=== PATIENT | female | born 1955 | race Caucasian/White ===

== ENCOUNTER 2017-02-25 08:30 | Outpatient (CLI) | payer BC ==
[2017-02-25 12:49] LABS: BILIRUBIN,URINE NEGATIVE (NEGATIVE)
[2017-02-25 13:09] LABS: WBC,URINE 0-3 /HPF (0-5)
[2017-02-25 13:10] LABS: UR CULTURE IF IND NOT INDICATED
== END 2017-02-25 08:31 | disposition home or self-care (01) ==
LOC: LAB.WCP 08:30
PROVIDERS: ATTEND Physician Assistant Medical
DX: R31.9 Hematuria, unspecified (principal)
CPT/HCPCS: 81001; 87086

== ENCOUNTER 2018-03-02 14:20 | Outpatient (CLI) | payer BC ==
--- NOTE | 2018-03-02 17:07 | Ultrasound Report ---
Procedure Date: 03/02/2018 Accession Number: [id number] / [id number] Procedure: US - Head or Neck Soft Tissue CPT Code: FULL RESULT: EXAM: THYROID ULTRASOUND EXAM DATE: 03/02/2018 03:42 PM. CLINICAL HISTORY: HOT FLASHES,TACHYARRHYTHMIA. COMPARISON: None. TECHNIQUE: Real time sonographic imaging of the thyroid was performed by the care clinician. Multiple food products sales representative static images were saved for review. FINDINGS: THYROID GLAND: Right Lobe: 4.6 x 1.5 x 1.1 cm, volume 4 cc. Normal background echotexture. Right Lobe Nodules: 4 x 3 x 4 mm hypoechoic avascular inferior pole nodule. Left Lobe: 3.8 x 1.8 x 1.1 cm, volume 4 cc. Normal background echotexture. Left Lobe Nodules: 7 mm in diameter midpole isoechoic avascular nodule. Adjacent more inferior slightly exophytic minimally vascular isoechoic nodule 1.2 x 1.1 x 1.1 cm. Isthmus: 0.3 cm AP. Isthmic Nodules: None. LYMPH NODES: No adenopathy demonstrated in the central or lateral compartment. OTHER: None. IMPRESSION: 3 thyroid nodules as above. Suggest follow-up thyroid ultrasound in 6-12 months. Management recommendations are based on 2015 [place] [employer] Management Guidelines for Adult Patients with Thyroid Nodules and Differentiated Thyroid Cancer. RADIA
== END 2018-03-02 14:21 | disposition home or self-care (01) ==
LOC: DI 14:20
PROVIDERS: ATTEND Family Medicine
DX: N95.1 Menopausal and female climacteric states (principal); R00.0 Tachycardia, unspecified; E04.2 Nontoxic multinodular goiter
CPT/HCPCS: 76536

== ENCOUNTER 2019-03-26 08:00 | Outpatient (CLI) | payer BC | END 2019-03-26 23:59 | disposition home or self-care (01) | LOC: LAB.R 08:00 | PROVIDERS: ATTEND Family Medicine | DX: N39.0 Urinary tract infection, site not specified (principal) | CPT/HCPCS: 87086; 87181 ==

== ENCOUNTER 2019-06-09 14:39 | Outpatient (CLI) | payer BC ==
[2019-06-09 18:46] LABS: CALCIUM 9.5 mg/dL (8.5-10.3); CREATININE 0.9 mg/dL (0.4-1.0)
== END 2019-06-09 23:59 | disposition home or self-care (01) ==
LOC: LAB.WCP 14:39
PROVIDERS: ATTEND Family Medicine
DX: I49.9 Cardiac arrhythmia, unspecified (principal); E04.1 Nontoxic single thyroid nodule; I10 Essential (primary) hypertension
CPT/HCPCS: 36415; 80048; 84443; 84550

== ENCOUNTER 2019-09-16 13:45 | Outpatient (CLI) | payer BC ==
[2019-09-16 14:07] LABS: BASOPHILS % (AUTO) 0.2 %; EOSINOPHILS % (AUTO) 0.1 %; HGB - HEMOGLOBIN 13.5 g/dL (12.0-16.0); LYMPHOCYTES # (AUTO) 1.8 10^3/uL (1.5-3.5); LYMPHOCYTES % (AUTO) 13.7 %; MEAN CORPUSCULAR HEMOGLOBIN 30.1 pg (27.0-31.0); MEAN CORPUSCULAR HGB CONC 33.3 g/dL (32.0-36.0); MEAN CORPUSCULAR VOLUME 90.6 fL (81.0-99.0); MONOCYTES # (AUTO) 0.7 10^3/uL (0.0-1.0); MONOCYTES % (AUTO) 5.1 %; NEUTROPHILS # (AUTO) 10.4 10^3/uL (1.5-6.6); PLT - PLATELET COUNT 308 10^3/uL (130-450); RED BLOOD COUNT 4.48 10^6/uL (4.20-5.40); RED CELL DISTRIBUTION WIDTH 13.7 % (12.0-15.0); WHITE BLOOD COUNT 13.1 x10^3/uL (4.8-10.8)
[2019-09-16 14:35] LABS: ALBUMIN 4.6 g/dL (3.2-5.5); ALBUMIN/GLOBULIN RATIO 1.5 (1.0-2.2); BILIRUBIN,TOTAL 0.6 mg/dL (0.2-1.0); CALCIUM 9.4 mg/dL (8.5-10.3); CREATININE 0.9 mg/dL (0.4-1.0); TOTAL PROTEIN 7.7 g/dL (6.7-8.2)
== END 2019-09-16 13:46 | disposition home or self-care (01) ==
LOC: LAB 13:45
PROVIDERS: ATTEND Obstetrics & Gynecology
DX: Z01.812 Encounter for preprocedural laboratory examination (principal); N95.0 Postmenopausal bleeding
CPT/HCPCS: 36415; 80053; 85025

== ENCOUNTER 2019-09-22 14:35 | Day surgery (SDC) | payer BC ==
--- NOTE | 2019-09-22 05:04 | HISTORY & PHYSICAL EXAMINATION ---
HPI - History of Present Illness HPI Comment/Other: CC: PreOp Consult: hysteroscopy HPI: Pt is here today for a preop consult for a hysteroscopy ...................................................................LETI Booth September 21, 2019 2:27 PM Patient was last seen in clinic on 09/09/28 for postmenopausal bleeding and thickened endometrium Had new onset vaginal bleeding in late July. Pelvic us showed a 14 mm EMS as well as an endometrial mass She has since undergone a stress test and was cleared for surgery. Has been given misoprostol for preop preparation Last pap 08/02; wnl No change in health hx other than as noted in HPI Current Allergies: CIPRO (Moderate) Current Meds: ADVAIR DISKUS 250-50 MCG/DOSE INHALATION AEROSOL POWDER CHRISTINE (FLUTICASONE- SALMETEROL) Use one inhalation twice daily, rinse mouth after use; Route: INHALATION DILTIAZEM HCL ER 120 MG ORAL CAPSULE EXTENDED RELEASE 24 YELENA (DILTIAZEM HCL) Take two capsule by mouth once daily for high blood pressure; Route: ORAL HYDROCHLOROTHIAZIDE 12.5 MG ORAL TABLET (HYDROCHLOROTHIAZIDE) Take one tablet by mouth daily; Route: ORAL METHOCARBAMOL 500 MG TABS (METHOCARBAMOL) TAKE 1 AND 1/2 TABLETS (750 MG) BY MOUTH THREE TIMES DAILY NEEDED FOR BACK SPASMS CHOLESTYRAMINE 4 GM PACK (CHOLESTYRAMINE) TAKE ONE PACKET WITH 6 OUNCES OF WATER TWICE DAILY IBUPROFEN 800 MG TABS (IBUPROFEN) TAKE ONE TABLET BY MOUTH THREE TIMES DAILY WITH FOOD VENTOLIN HFA 108 MCG/ACT AER GLAX (ALBUTEROL SULFATE) INHALE TWO PUFFS BY MOUTH EVERY FOUR HOURS NEEDED FOR WHEEZING FLUTICASONE PROPIONATE NASAL SUSPENSION 50 MCG/ACT (FLUTICASONE PROPIONATE) USE ONE SPRAY IN EACH NOSTRIL TWICE DAILY TRIAMCINOLONE ACETONIDE 0.1 % EXTERNAL CREAM (TRIAMCINOLONE ACETONIDE) Apply sparingly to affected areas daily TRUETEST TEST IN VITRO STRIP (GLUCOSE BLOOD) use to check BS once daily MONOLET LANCETS (LANCETS) use to check BS once daily HYDROCORTISONE 2.5 % EXTERNAL CREAM (HYDROCORTISONE) Apply twice daily to affected ear canal as needed; Route: EXTERNAL Allergies: CIPRO (Moderate) Medications: ADVAIR DISKUS 250-50 MCG/DOSE INHALATION AEROSOL POWDER CHRISTINE (FLUTICASONE- SALMETEROL) Use one inhalation twice daily, rinse mouth after use; Route: INHALATION DILTIAZEM HCL ER 120 MG ORAL CAPSULE EXTENDED RELEASE 24 YELENA (DILTIAZEM HCL) Take two capsule by mouth once daily for high blood pressure; Route: ORAL HYDROCHLOROTHIAZIDE 12.5 MG ORAL TABLET (HYDROCHLOROTHIAZIDE) Take one tablet by mouth daily; Route: ORAL METHOCARBAMOL 500 MG TABS (METHOCARBAMOL) TAKE 1 AND 1/2 TABLETS (750 MG) BY MOUTH THREE TIMES DAILY NEEDED FOR BACK SPASMS CHOLESTYRAMINE 4 GM PACK (CHOLESTYRAMINE) TAKE ONE PACKET WITH 6 OUNCES OF WATER TWICE DAILY IBUPROFEN 800 MG TABS (IBUPROFEN) TAKE ONE TABLET BY MOUTH THREE TIMES DAILY WITH FOOD VENTOLIN HFA 108 MCG/ACT AER GLAX (ALBUTEROL SULFATE) INHALE TWO PUFFS BY MOUTH EVERY FOUR HOURS NEEDED FOR WHEEZING FLUTICASONE PROPIONATE NASAL SUSPENSION 50 MCG/ACT (FLUTICASONE PROPIONATE) USE ONE SPRAY IN EACH NOSTRIL TWICE DAILY TRIAMCINOLONE ACETONIDE 0.1 % EXTERNAL CREAM (TRIAMCINOLONE ACETONIDE) Apply sparingly to affected areas daily TRUETEST TEST IN VITRO STRIP (GLUCOSE BLOOD) use to check BS once daily MONOLET LANCETS (LANCETS) use to check BS once daily HYDROCORTISONE 2.5 % EXTERNAL CREAM (HYDROCORTISONE) Apply twice daily to affected ear canal as needed; Route: EXTERNAL Problems: Preop exam (ICD-V72.84) (WZM67-D97.818) Thickened endometrium (ICD-793.5) (ZKN08-V33.00) Menorrhagia, postmenopausal (ICD-627.1) (AZC22-E12.0) Thyroid nodule (ICD-240.9) (SSL47-V24.1) Tachyarrhythmia (ICD-427.89) (DQY43-R60.0) Asthma (ICD-493.90) (NHM36-I52.909) Back pain, thoracic region (ICD-724.1) (UCM31-P10.6) Back pain, lumbar (ICD-724.2) (BHD75-M77.5) Preventive health care (ICD-V70.0) (VSN09-Z09.00) Diverticular disease (ICD-562.10) (JWX88-J70.90) Internal hemorrhoids (ICD-455.0) (FXB21-O25.8) Intertrigo, candidal (ICD-695.89) (WUE38-O89.2) Obesity (ICD-278.00) (BQZ22-O09.9) SHOULDER IMPINGEMENT SYNDROME (ICD-726.2) (AFU92-H81.40) ARTHRITIS, ANKLE/FOOT (ICD-716.97) (GLA90-W86.079) IRRITABLE BOWEL SYNDROME (ICD-564.1) (CYZ66-R02.9) TRIGGER FINGER (ICD-727.03) (AXR19-Q60.30) HIATAL HERNIA (ICD-553.3) (TVU73-B54.9) HYPERTENSION, BENIGN ESSENTIAL (ICD-401.1) (JMF59-U48) DYSLIPIDEMIA (ICD-272.9) (PGI14-A20.9) DIABETES MELLITUS (ICD-250.00) (VYQ13-P94.9) Risk Factors: Smoked Tobacco Use: Never smoker Smokeless Tobacco Use: Never Passive Smoke Exposure: no HIV High Risk Behavior: no Caffeine Use: 1 drinks per day Exercise: no Seatbelt Use: 100 % Sun Exposure: occasionally Dietary Counseling: yes Alcohol Use: no Drug Use: no Vital Signs: Patient Profile: 64 Years Old Female Height: 62.75 inches Weight: 270 pounds BMI: 48.38 BP sittin / 80 Cuff size: regular Vitals Entered By: LETI Booth (September 21, 2019 2:27 PM) Meds Reviewed: Done Allergies Reviewed: Done Past Medical History: UTI (ICD-599.0) (FMO04-D47.0) Physical examination (ICD-V70.0) (XVF96-W36.00) Intertrigo, candidal (ICD-695.89) (UFP48-H59.2) Sinusitis, acute (ICD-461.9) (OIV17-H22.90) Obesity (ICD-278.00) (WOS98-F39.9) DIARRHEA (ICD-787.91) (ANA53-M20.7) SHOULDER IMPINGEMENT SYNDROME (ICD-726.2) (HFF95-N31.40) ARTHRITIS, ANKLE/FOOT (ICD-716.97) (FGE76-Y34.079) ABDOMINAL PAIN (ICD-789.00) (FVW47-W50.9) IRRITABLE BOWEL SYNDROME (ICD-564.1) (FAU77-F61.9) TRIGGER FINGER (ICD-727.03) (RUX93-I62.30) HIATAL HERNIA (ICD-553.3) (IGI11-T40.9) LACTOSE INTOLERANCE (ICD-271.3) (DBS51-Y16.9) MENOPAUSAL SYNDROME (ICD-627.2) (YLV09-I70.1) HYPERTENSION, BENIGN ESSENTIAL (ICD-401.1) (TEH14-V28) DYSLIPIDEMIA (ICD-272.9) (GXX21-M49.9) DIABETES MELLITUS (ICD-250.00) (PHJ15-E97.9) Past Surgical History: Cholecystectomy - 2011 carpal tunnel b/l release R shoulder impingement Torn knee R meniscus left axilla - lipoma removal 1981 - ectopic - left fallopian tube 1983 - right cataract 209- Trigger finger 1979 - D&C 2008 - Tear duct re-routed 2012 - R knee - arthroscopic surgery - Dr. Elkins (Mar 2013) DEBURRER Review of Systems ROS Comments: As per HPI, otherwise remaining systems are negative. Physical Constitutional: alert, no acute distress, well hydrated. obese appearing. Skin: normal turgor, normal color. Head: atraumatic, normocephalic. Cardiovascular: RRR. Respiratory: no respiratory distress, clear to auscultation. Abdomen: nondistended, nontender, no guarding. Spine: normal mobility. Extremities: full joint motion. Neurologic: normal. Psych: affect and mood appropriate, normal interaction, good eye contact. Impression & Recommendations: Problem # 1: Preop exam (ICD-V72.84) (XWD63-E84.818) Orders: PRE OP -[id number] (CPT-20623) Cleared stress test Reviewed risks/benefits/alternatives to procedure Reviewed that risks include, but are not limited to, bleeding, infection, damage to nearby tissue and organs including uterine perforation Patient accepts risks and written informed consent was obtained for hysteroscopy, D&C with possible polypectomy/myomectomy Proceed to OR on 09/22/19 Patient Portal: [id number] Current Allergies: CIPRO (Moderate) Current Meds: ADVAIR DISKUS 250-50 MCG/DOSE INHALATION AEROSOL POWDER CHRISTINE (FLUTICASONE- SALMETEROL) Use one inhalation twice daily, rinse mouth after use; Route: INHALATION DILTIAZEM HCL ER 120 MG ORAL CAPSULE EXTENDED RELEASE 24 YELENA (DILTIAZEM HCL) Take two capsule by mouth once daily for high blood pressure; Route: ORAL HYDROCHLOROTHIAZIDE 12.5 MG ORAL TABLET (HYDROCHLOROTHIAZIDE) Take one tablet by mouth daily; Route: ORAL METHOCARBAMOL 500 MG TABS (METHOCARBAMOL) TAKE 1 AND 1/2 TABLETS (750 MG) BY MOUTH THREE TIMES DAILY NEEDED FOR BACK SPASMS CHOLESTYRAMINE 4 GM PACK (CHOLESTYRAMINE) TAKE ONE PACKET WITH 6 OUNCES OF WATER TWICE DAILY IBUPROFEN 800 MG TABS (IBUPROFEN) TAKE ONE TABLET BY MOUTH THREE TIMES DAILY WITH FOOD VENTOLIN HFA 108 MCG/ACT AER GLAX (ALBUTEROL SULFATE) INHALE TWO PUFFS BY MOUTH EVERY FOUR HOURS NEEDED FOR WHEEZING FLUTICASONE PROPIONATE NASAL SUSPENSION 50 MCG/ACT (FLUTICASONE PROPIONATE) USE ONE SPRAY IN EACH NOSTRIL TWICE DAILY TRIAMCINOLONE ACETONIDE 0.1 % EXTERNAL CREAM (TRIAMCINOLONE ACETONIDE) Apply sparingly to affected areas daily TRUETEST TEST IN VITRO STRIP (GLUCOSE BLOOD) use to check BS once daily MONOLET LANCETS (LANCETS) use to check BS once daily HYDROCORTISONE 2.5 % EXTERNAL CREAM (HYDROCORTISONE) Apply twice daily to affected ear canal as needed; Route: EXTERNAL PMH/PSH - Past Medical History Cardiovascular: positive: Hypertension, Other Respiratory: positive: Asthma Endocrine/Autoimmune: positive: Type 2 diabetes, Other GI: positive: GERD, Hiatal hernia, Other : positive: Chronic bladder infection HEENT: positive: Chronic vision loss Psych: positive: None Musculoskeletal: positive: Osteoarthritis, Chronic back pain Derm: positive: Rosacea MRSA Hx?: No - Past Surgical History General: positive: Cholecystectomy, Other Ortho: positive: Arthroscopic surgery, Carpal Tunnel surgery, Other /DEBURRER: positive: Dilation and currettage, Tubal ligation HEENT: positive: Cataracts, Other Meds/Allgy - Home Medications Home Medications: Ambulatory Orders Medication Instructions Recorded Confirmed Albuterol Sulfate [Albuterol 1 - 2 puffs IH Q4H PRN 09/16/19 09/16/19 Sulfate Hfa] Cholestyramine [Questran] 4 gm PO DAILY PRN 09/16/19 09/16/19 Diltiazem HCl [Dilt-Xr] 240 mg PO DAILY 09/16/19 09/16/19 Diltiazem HCl [Diltiazem 12Hr ER] 120 mg PO QPM 09/16/19 09/16/19 Fluticasone Propionate [24 Hour 1 spray NS BID 09/16/19 09/16/19 Allergy] Fluticasone [Flonase] 1 sprays SARA BID 09/16/19 09/16/19 Hydrochlorothiazide 12.5 mg PO DAILY 09/16/19 09/16/19 Ibuprofen 800 mg PO TID PRN 09/16/19 09/16/19 Losartan Potassium 50 mg PO QPM 09/16/19 09/16/19 Magnesium 250 mg PO DAILY 09/16/19 09/16/19 Pantoprazole Sodium 40 mg PO DAILY 09/16/19 09/16/19 Salmeterol Xinafoate [Serevent 1 puffs IH DAILY 09/16/19 09/16/19 Diskus] - Allergies Allergies/Adverse Reactions: Allergies Allergy/AdvReac Type Severity Reaction Status Date / Time ciprofloxacin [From Cipro] AdvReac Nausea Verified 09/16/19 14:52
[2019-09-22] MEDS ORDERED: GABAPENTIN 400 MG CAPSULE ONE (14:55)
[2019-09-22] MEDS ORDERED: CELECOXIB 100 MG CAPSULE PO ONE (14:55)
[2019-09-22] MEDS ORDERED: ACETAMINOPHEN 1,000 MG/100 ML 100 ML IV ONE ×2 (14:56→18:47)
[2019-09-22] MEDS ORDERED: LACTATED RINGERS 1,000 ML IV ONE (15:58)
--- NOTE | 2019-09-22 16:05 | ANESTHESIA ---
Pre-Anesthesia VS, & Labs - Diagnosis menorrhagia post menopausal - Procedure hysteroscopy Vital Signs: Temp Pulse Resp BP Pulse Ox 36.8 C 108 H 16 148/70 H 99 09/22/19 15:18 09/22/19 15:18 09/22/19 15:18 09/22/19 15:18 09/22/19 15:18 Height 5 ft 2 in Weight (kg) 121.3 kg - Is Patient ?: No - Lab Results Current Lab Results: Laboratory Tests 09/22/19 15:52: POC Whole Bld Glucose 112 H Home Medications and Allergies Home Medications: Ambulatory Orders Albuterol Sulfate [Albuterol Sulfate Hfa] 1 - 2 puffs IH Q4H PRN 09/16/19 Cholestyramine [Questran] 4 gm PO DAILY PRN 09/16/19 Diltiazem HCl [Dilt-Xr] 240 mg PO DAILY 09/16/19 Diltiazem HCl [Diltiazem 12Hr ER] 120 mg PO QPM 09/16/19 Fluticasone Propionate [24 Hour Allergy] 1 spray NS BID 09/16/19 Fluticasone [Flonase] 1 sprays SARA BID 09/16/19 Hydrochlorothiazide 12.5 mg PO DAILY 09/16/19 Ibuprofen 800 mg PO TID PRN 09/16/19 Losartan Potassium 50 mg PO QPM 09/16/19 Magnesium 2 mg PO DAILY 09/16/19 Pantoprazole Sodium 40 mg PO DAILY 09/16/19 Salmeterol Xinafoate [Serevent Diskus] 1 puffs IH DAILY 09/16/19 Albuterol Sulfate [Albuterol Sulfate Hfa] 1 - 2 puffs IH Q4H PRN 09/16/19 Cholestyramine [Questran] 4 gm PO DAILY PRN 09/16/19 Diltiazem HCl [Dilt-Xr] 240 mg PO DAILY 09/16/19 Diltiazem HCl [Diltiazem 12Hr ER] 120 mg PO QPM 09/16/19 Fluticasone Propionate [24 Hour Allergy] 1 spray NS BID 09/16/19 Fluticasone [Flonase] 1 sprays SARA BID 09/16/19 Hydrochlorothiazide 12.5 mg PO DAILY 09/16/19 Ibuprofen 800 mg PO TID PRN 09/16/19 Losartan Potassium 50 mg PO QPM 09/16/19 Magnesium 2 mg PO DAILY 09/16/19 Pantoprazole Sodium 40 mg PO DAILY 09/16/19 Salmeterol Xinafoate [Serevent Diskus] 1 puffs IH DAILY 09/16/19 Allergies/Adverse Reactions: Allergies Allergy/AdvReac Type Severity Reaction Status Date / Time ciprofloxacin [From Cipro] AdvReac Nausea Verified 09/16/19 14:52 Anes History & Medical History - Anesthetic History Anesthesia Complications: reports: No previous complications Family history of Anesthesia Complications: Denies - Medical History Cardiovascular: reports: Hypertension, Other Pulmonary: reports: Asthma, Sleep apnea Gastrointestinal: reports: GERD, Hiatal hernia, Other Urinary: reports: Chronic bladder infection Neuro: reports: None Musculoskeletal: reports: Osteoarthritis, Chronic back pain Endocrine/Autoimmune: reports: Type 2 diabetes, Other Blood Disorders: reports: None Skin: reports: Rosacea Smoking Status: Never smoker Psychosocial: reports: No issues indicated (thyroid nodules on the posterior of the thyroid gland) - Surgical History General: Cholecystectomy, Other Eyes Ears Nose Throat (EENT): Cataracts, Other Gynecologic: Dilation and currettage, Tubal ligation Orthopedic: Arthroscopic surgery, Carpal Tunnel surgery, Other Results - EKG Results EKG Comparison: Reviewed EKG Exam General: Alert, Oriented x3, Cooperative, No acute distress Dental: WNL Mouth Openin Fingerbreadth Neck Mobility: Normal Mallampati classification: II Thyromental Distance: 4-6 cm Respiratory: Lungs clear, Normal breath sounds, No respiratory distress, No accessory muscle use Cardiovascular: Regular rate, Normal S1, Normal S2, No murmurs Abdomen: Normal bowel sounds, Soft, No tenderness, No hepatospenomegaly, No masses Extremities: No clubbing, No cyanosis, No edema, Normal pulses, No tenderness/swelling Neurological: Normal gait, Normal speech, Strength at 5/5 X4 ext, Normal tone, Sensation intact, Cranial nerves 3-12 NL, Reflexes 2+ Mental/Cognitive Status: Alert/Oriented X3, Normal for patient Cognitive Status: Within normal limits Plan Anesthesia Type: General Consent for Procedure(s) Verified and Reviewed: Yes Code Status: Attempt Resuscitation ASA classification: 3-Severe systemic disease Is this case an emergency?: No
[2019-09-22] MEDS ORDERED: LIDOCAINE 2%-EPI 1:100000 20 ML MDV ONE (18:36)
[2019-09-22] MEDS ORDERED: LIDOCAINE-MPF 2% 5 ML VIAL IM ONE (18:47)
[2019-09-22] MEDS ORDERED: GLYCOPYRROLATE 1 MG/5 ML VIAL IVP ONE (18:47)
[2019-09-22] MEDS ORDERED: KETOROLAC 30 MG/ML VIAL IVP ONE (18:47)
[2019-09-22] MEDS ORDERED: PROPOFOL 200 MG/20 ML VIAL IVP ONE (18:47)
[2019-09-22] MEDS ORDERED: ONDANSETRON 4 MG/2 ML VIAL IVP ONE (18:47)
[2019-09-22] MEDS ORDERED: LIDOCAINE 2%-EPI 1:100000 20 ML MDV SUBQ ONE (19:18)
[2019-09-22 20:56] VITALS: BP 151/78
--- NOTE | 2019-09-24 11:53 | OPERATIVE REPORT ---
Operative Report - General Procedure Date: 09/22/19 Planned Procedure: Hysteroscopy D&C with possible polypectomy Pre-Op Diagnosis: Postmenopausal bleeding and thickened endometrium Procedure Performed: Hysteroscopy D&C and polypectomy Post Op Diagnosis: Same and endocervical polyp - Procedure Note Primary Surgeon: Missy Byrd MD Anesthesia Provider: Jeromy Lassiter CRNA Pathology: Uterine contents IV Fluids (mL): 400 Estimated Blood Loss (mL): 5 Urine Output (mL): 100 Indications: Patient is a 64-year-old female with postmenopausal bleeding and a pelvic ultrasound that showed thickened endometrium and possible endomet rial/endocervical mass. Findings: Polyp extending through the endocervical canal and protruding through the external cervical os. Otherwise unremarkable uterine cavity. Complications: None - Other Other Information/Narrative: Risks benefits and alternatives to the procedure were reviewed. Consent was a gain confirmed. Patient was taken to the operating room where she underwent general anesthesia. She was positioned in dorsolithotomy position with legs resting in yellowfin stirrups. She was prepped and draped in the usual sterile fashion. Preoperative antibiotics were not indicated. Preoperative checklist was performed. Exam under anesthesia was performed. Speculum was placed in the vagina and the cervix was visualized. Single-tooth tenaculum was placed at the anterior cervical lip. Paracervical block was administered using a total of 20 cc of 1% lidocaine with epinephrine was injected at the 4:00 and 8:00 positions lateral to the portio of the cervix. Aa small amount of tissue was observed at the external os. It was grasped with forceps and twisted with downard pressure. A 3- 4 cm long mass was removed intact from the cervix/uterus. The cervical os was serially dilated with Hegar dilators to accommodate the caliber of the diagnostic hysteroscope. Uterus sounded to 8 cm. The hysteroscope was inserted and findings were noted as above. The hysteroscopic morcellator was inserted through the operative port. There were not other intrauterine polyps noted. D&C was performed under direct visualization with the morcellator. Uterine cavity was smooth at close of the procedure. Hysteroscope was removed. All instruments were removed from the uterus. Tenaculum was removed. Tenaculum sites were noted to be hemostatic. All instruments were removed from the vagina. Procedure was well-tolerated without complication. Fluid deficit: 670 cc NS
== END 2019-09-22 21:00 | disposition home or self-care (01) ==
LOC: SDS 14:35 → MS3 20:01 → SDS 21:00
PROVIDERS: ATTEND Obstetrics & Gynecology
PROC: 0UDB8ZZ Extraction of Endometrium, Via Natural or Artificial Opening Endoscopic (ICD-10-PCS; principal; 2019-09-22 14:15)
DX: N95.0 Postmenopausal bleeding (principal); N84.1 Polyp of cervix uteri; R93.89 Abnormal findings on diagnostic imaging of other specified body structures; G47.30 Sleep apnea, unspecified; J45.909 Unspecified asthma, uncomplicated; E11.9 Type 2 diabetes mellitus without complications; I10 Essential (primary) hypertension; E66.9 Obesity, unspecified; Z68.42 Body mass index [BMI] 45.0-49.9, adult
CPT/HCPCS: 58558; A9270; J0131; J7120

== ENCOUNTER 2019-12-03 08:00 | Outpatient (CLI) | payer BC ==
[2019-12-03 13:27] LABS: BILIRUBIN,URINE NEGATIVE (NEGATIVE); CLARITY,URINE SL. CLOUDY (CLEAR); GLUCOSE, URINE (UA) >=1000 mg/dL (NEGATIVE); KETONES,URINE (UA) NEGATIVE (NEGATIVE); LEUKOCYTE ESTERASE, URINE MODERATE (NEGATIVE); NITRITE,URINE NEGATIVE (NEGATIVE); OCCULT BLOOD,URINE SMALL (NEGATIVE); PROTEIN,URINE NEGATIVE (NEGATIVE); UROBILINOGEN,URINE 0.2 (NORMAL) E.U./dL (NORMAL)
[2019-12-03 13:36] LABS: BACTERIA,URINE Few /HPF (None Seen); SQUAMOUS EPITHELIAL CELL,UR FEW Squamous (<= Few)
== END 2019-12-03 23:59 | disposition home or self-care (01) ==
LOC: LAB.WCP 08:00
PROVIDERS: ATTEND Family Medicine
DX: R30.0 Dysuria (principal)
CPT/HCPCS: 81001; 81003; 87086; 87181

== ENCOUNTER 2020-01-19 14:00 | Outpatient (CLI) | payer BC | END 2020-01-19 23:59 | disposition home or self-care (01) | LOC: LAB.R 14:00 | PROVIDERS: ATTEND Family Medicine | DX: R35.0 Frequency of micturition (principal) | CPT/HCPCS: 87086 ==

== ENCOUNTER 2020-03-16 10:27 | Outpatient (CLI) | payer BC, MEDICARE ==
[2020-03-16 11:17] LABS: BASOPHILS # (AUTO) 0.1 10^3/uL (0.0-0.1); BASOPHILS % (AUTO) 0.5 %; EOSINOPHILS # (AUTO) 0.3 10^3/uL (0.0-0.7); EOSINOPHILS % (AUTO) 2.9 %; HGB - HEMOGLOBIN 13.8 g/dL (12.0-16.0); LYMPHOCYTES # (AUTO) 2.2 10^3/uL (1.5-3.5); LYMPHOCYTES % (AUTO) 23.3 %; MEAN CORPUSCULAR HEMOGLOBIN 29.4 pg (27.0-31.0); MEAN CORPUSCULAR HGB CONC 32.5 g/dL (32.0-36.0); MEAN CORPUSCULAR VOLUME 90.6 fL (81.0-99.0); MEAN PLATELET VOLUME 9.3 fL (7.9-10.8); MONOCYTES # (AUTO) 0.6 10^3/uL (0.0-1.0); MONOCYTES % (AUTO) 5.9 %; NEUTROPHILS # (AUTO) 6.3 10^3/uL (1.5-6.6); NEUTROPHILS % (AUTO) 66.9 %; PLT - PLATELET COUNT 260 10^3/uL (130-450); RED BLOOD COUNT 4.69 10^6/uL (4.20-5.40); RED CELL DISTRIBUTION WIDTH 14.8 % (12.0-15.0); WHITE BLOOD COUNT 9.4 x10^3/uL (4.8-10.8)
[2020-03-16 11:23] LABS: MAGNESIUM 2.3 mg/dL (1.7-2.8)
[2020-03-16 12:01] LABS: CREATININE,URINE 163.4 mg/dL; MICROALBUM/CREATININE RATIO,UR 15.3 ug/mg (<30.0); MICROALBUMIN,URINE 2.5 mg/dL (0-300.0)
[2020-03-16 12:53] LABS: HEMOGLOBIN A1c% 6.9 % (4.27-6.07)
== END 2020-03-16 10:28 | disposition home or self-care (01) ==
LOC: LAB 10:27
PROVIDERS: ATTEND Obstetrics & Gynecology
DX: Z01.812 Encounter for preprocedural laboratory examination (principal); Z20.828 Contact with and (suspected) exposure to other viral communicable diseases; N84.9 Polyp of female genital tract, unspecified; N85.00 Endometrial hyperplasia, unspecified; I10 Essential (primary) hypertension; E78.9 Disorder of lipoprotein metabolism, unspecified; E11.9 Type 2 diabetes mellitus without complications; R00.0 Tachycardia, unspecified
CPT/HCPCS: 36415; 80048; 82043; 82570; 83036; 83735; 85025

== ENCOUNTER 2020-03-22 06:31 | Day surgery (SDC) | payer BC ==
[~2020-03-22 06:31] MED LIST: ACETAMINOPHEN 1,000 MG/100 ML 100 ML IV ONE; CELECOXIB 100 MG CAPSULE PO ONE; GABAPENTIN 400 MG CAPSULE ONE
[2020-03-22] MEDS ORDERED: LACTATED RINGERS 1,000 ML IV ONE ×2 (06:32→08:40)
--- NOTE | 2020-03-22 06:54 | HISTORY & PHYSICAL EXAMINATION ---
HPI - History of Present Illness HPI Comment/Other: PreOp Consult HPI: Pt is here today for a preop consult for a hysteroscopy D&C ...................................................................LETI Booth March 14, 2020 1:06 PM Patient is a 65 yo female that presents for preop assessment for hysteroscopy D&C. Patient was last seen in clinic on 02/17/2020 with postmenopausal bleeding. She had undergone a hysteroscopy D&C in September of this year after presenting with postmenopausal bleeding. At time of surgery, she had a large polyp protruding through the cervix. It was removed and was more than 4 cm long and incorporated all of the endoemerial thickness. Endometrium was otherwise atrophic and unremarkable. At her last visit she reported that she had started having daily consistent spotting but no gushes or heavy flow as in the past. She is wearing a pad and supplementing with a papertowel. On 01/26/20, flow became heavier. She feels it is almost as though she has been having a cycle as flow waxes and wanes. She underwent a pelvic us on 03/07/2020 that showed no significant changes from the 09/07/19 exam, despite removal of substantial polyp in September 2019. EMS was 11 mm and polypoid structure was 14 mm x4x6 mm with cystic changes in endometrium. She is aware that CAH or malignancy would prompt referral and treatment from [facility]. She is interested in hysterectomy regardless given the recurrence of large polypoid structures. BMI 48.92 and patient may be best served by [facility] regardless of pathology. Will proceed with hysteroscopy D&C for tissue sampling. No signficant changes in health hx since time of prior exam other than as noted in HPI. . Allergies: CIPRO (Moderate) Medications: CARVEDILOL 12.5 MG ORAL TABLET (CARVEDILOL) Take one tablet by mouth twice daily for high blood pressure; Route: ORAL LOSARTAN POTASSIUM 100 MG ORAL TABLET (LOSARTAN POTASSIUM) Take one tablet by mouth once daily for high blood pressure; Route: ORAL VANCOMYCIN HCL 125 MG ORAL CAPSULE (VANCOMYCIN HCL) Take one capsule by mouth 4 x a day for four days, then one capsule twice daily for seven days, then one capsule every two days for four weeks; Route: ORAL MEDROXYPROGESTERONE ACETATE 10 MG ORAL TABLET (MEDROXYPROGESTERONE ACETATE) Take one tablet by mouth daily; Route: ORAL MACROBID 100 MG ORAL CAPSULE (NITROFURANTOIN MONOHYD MACRO) Take one tablet by mouth twice daily for 7 days; Route: ORAL ADVAIR DISKUS 250-50 MCG/DOSE INHALATION AEROSOL POWDER CHRISTINE (FLUTICASONE- SALMETEROL) Use one inhalation twice daily, rinse mouth after use; Route: INHALATION DILTIAZEM HCL ER 120 MG ORAL CAPSULE EXTENDED RELEASE 24 YELENA (DILTIAZEM HCL) Take two capsule by mouth once daily for high blood pressure; Route: ORAL HYDROCHLOROTHIAZIDE 12.5 MG ORAL TABLET (HYDROCHLOROTHIAZIDE) Take one tablet by mouth daily; Route: ORAL METHOCARBAMOL 500 MG TABS (METHOCARBAMOL) TAKE 1 AND 1/2 TABLETS (750 MG) BY MOUTH THREE TIMES DAILY NEEDED FOR BACK SPASMS CHOLESTYRAMINE 4 GM PACK (CHOLESTYRAMINE) TAKE ONE PACKET WITH 6 OUNCES OF WATER TWICE DAILY IBUPROFEN 800 MG TABS (IBUPROFEN) TAKE ONE TABLET BY MOUTH THREE TIMES DAILY WITH FOOD VENTOLIN HFA 108 MCG/ACT AER GLAX (ALBUTEROL SULFATE) INHALE TWO PUFFS BY MOUTH EVERY FOUR HOURS NEEDED FOR WHEEZING FLUTICASONE PROPIONATE NASAL SUSPENSION 50 MCG/ACT (FLUTICASONE PROPIONATE) USE ONE SPRAY IN EACH NOSTRIL TWICE DAILY TRIAMCINOLONE ACETONIDE 0.1 % EXTERNAL CREAM (TRIAMCINOLONE ACETONIDE) Apply sparingly to affected areas daily TRUETEST TEST IN VITRO STRIP (GLUCOSE BLOOD) use to check BS once daily MONOLET LANCETS (LANCETS) use to check BS once daily HYDROCORTISONE 2.5 % EXTERNAL CREAM (HYDROCORTISONE) Apply twice daily to affected ear canal as needed; Route: EXTERNAL Problems: Endometrial polyp (ICD-621.0) (PFG62-R32.0) Postmenopausal bleeding (ICD-627.1) (RXC22-A46.0) Clostridium difficile diarrhea (ICD-008.45) (CQA76-J33.72) Frequency of urination (ICD-788.41) (XDW10-V05.0) Dysuria (ICD-788.1) (WDD18-G40.0) Postoperative examination (ICD-V67.00) (QDU23-Q08) Preop exam (ICD-V72.84) (OTJ47-G98.818) Thickened endometrium (ICD-793.5) (HKZ81-B24.00) Menorrhagia, postmenopausal (ICD-627.1) (GKO64-K98.0) Thyroid nodule (ICD-240.9) (JRL35-V84.1) Tachyarrhythmia (ICD-427.89) (YGD38-G89.0) Asthma (ICD-493.90) (ZHS86-M82.909) Back pain, thoracic region (ICD-724.1) (AUC04-I52.6) Back pain, lumbar (ICD-724.2) (WUQ61-R22.5) Preventive health care (ICD-V70.0) (FQA81-Y02.00) Diverticular disease (ICD-562.10) (JXW51-B90.90) Internal hemorrhoids (ICD-455.0) (SZS11-H24.8) Intertrigo, candidal (ICD-695.89) (EAT70-N53.2) Obesity (ICD-278.00) (GMY76-C03.9) SHOULDER IMPINGEMENT SYNDROME (ICD-726.2) (CKU27-I46.40) ARTHRITIS, ANKLE/FOOT (ICD-716.97) (JBC26-M33.079) IRRITABLE BOWEL SYNDROME (ICD-564.1) (DAQ44-S02.9) TRIGGER FINGER (ICD-727.03) (IHE44-W25.30) HIATAL HERNIA (ICD-553.3) (OYV41-S18.9) HYPERTENSION, BENIGN ESSENTIAL (ICD-401.1) (ZCN10-I77) DYSLIPIDEMIA (ICD-272.9) (PWC13-G67.9) DIABETES MELLITUS (ICD-250.00) (XCB95-M10.9) [Family History-CCC] Risk Factors: Smoked Tobacco Use: Never smoker Smokeless Tobacco Use: Never Passive Smoke Exposure: no HIV High Risk Behavior: no Caffeine Use: 1 drinks per day Exercise: no Seatbelt Use: 100 % Sun Exposure: occasionally Dietary Counseling: yes Alcohol Use: no Drug Use: no Vital Signs: Patient Profile: 65 Years Old Female Height: 62.75 inches Weight: 273 pounds BMI: 48.92 BP sittin / 79 Cuff size: regular Vitals Entered By: LETI Booth (March 14, 2020 1:06 PM) Meds Reviewed: Done Allergies Reviewed: Done Past Medical History: UTI (ICD-599.0) (TAD86-N83.0) Physical examination (ICD-V70.0) (WNH07-U32.00) Intertrigo, candidal (ICD-695.89) (EJC65-H16.2) Sinusitis, acute (ICD-461.9) (MIZ41-Q67.90) Obesity (ICD-278.00) (YOE24-H08.9) DIARRHEA (ICD-787.91) (UVY57-L18.7) SHOULDER IMPINGEMENT SYNDROME (ICD-726.2) (PED23-E01.40) ARTHRITIS, ANKLE/FOOT (ICD-716.97) (LNZ99-Y08.079) ABDOMINAL PAIN (ICD-789.00) (GBS40-P57.9) IRRITABLE BOWEL SYNDROME (ICD-564.1) (RTM86-D66.9) TRIGGER FINGER (ICD-727.03) (TVD13-D48.30) HIATAL HERNIA (ICD-553.3) (AQG24-L00.9) LACTOSE INTOLERANCE (ICD-271.3) (NPT41-B34.9) MENOPAUSAL SYNDROME (ICD-627.2) (PXL91-G81.1) HYPERTENSION, BENIGN ESSENTIAL (ICD-401.1) (UJX60-M02) DYSLIPIDEMIA (ICD-272.9) (QYS29-T99.9) DIABETES MELLITUS (ICD-250.00) (FSR82-Q52.9) Past Surgical History: Cholecystectomy - 2011 carpal tunnel b/l release R shoulder impingement Torn knee R meniscus left axilla - lipoma removal 1981 - ectopic - left fallopian tube 1983 - right cataract 209- Trigger finger 1979 - D&C 2008 - Tear duct re-routed 2012 - R knee - arthroscopic surgery - Dr. Elkins (Mar 2013) CAN CLEANER Review of Systems ROS Comments: As per HPI, otherwise remaining systems are negative. Physical Constitutional: Constitutional: alert, no acute distress, well hydrated. Skin: normal turgor, normal color. Head: atraumatic, normocephalic. Eyes: No scleral icterus or conjunctival injection Cardiovascular: RRR. Respiratory: no respiratory distress, clear to auscultation. Abdomen: obese, S&NT Neurologic: normal. Psych: affect and mood appropriate, normal interaction, good eye contact. Vulva: normal appearance, no lesions or masses. Urethra: normal. Bladder: normal. Vagina: normal. Cervix: normal, no motion tenderness, no lesions. No polypoid lesions noted at cervical os Uterus: mobile, non-tender. Exam limited by habitus Impression & Recommendations: Problem # 1: Preop exam (ICD-V72.84) (XDB29-D87.818) Reviewed risks/benefits/alternatives to hysteroscopy/polpectomy Risks include, but are not limited to, bleeding, infection, damage to neatby tissue and organs. On average, expected EBL is minimal. In the event of an unanticipated blood loss, patient is willing to undergo transfusion. Risks of blood transfusion include infection as well as transfusion reaction Risk of HIV 1/2million nationwide Risk of Hepatitis 1/1 million Risks of transfusion reaction and mgt reviewed Infection risk low given that no incisions roc be made and we will be using physiologic orifices. Will provide IV abx in the event of uterine perforation. Damage to nearby tissue and organs was reviewed with emphasis on uterine perforation and management, which can include surgical intervention based on bleeding risk. Reviewed management of complications and efforts to avoid such outcomes but reviewed that they may occur despite our best efforts Orders: PRE OP -[id number] ([id number]) Patient Portal: [id number] Gender ID Identifies as Female LMP: 2010 Height: 62.75 (02/17/2020 2:17:16 PM) Weight: 273 Gonnorhea: negative (07/20/2015 10:17:48 AM) Chlamydia: negative (07/20/2015 10:17:48 AM) Gonnorrhea: negative (07/20/2015 10:17:48 AM) Chlamydia: negative (07/20/2015 10:17:48 AM) Last Mammo: Normal (03/09/2019 4:51:37 PM) Last Pap: Normal HPV Neg (08/10/2019 10:12:10 AM) Next pap due: 05/27/2017 (05/31/2014 2:31:38 PM) Current Allergies: CIPRO (Moderate) Current Meds: CARVEDILOL 12.5 MG ORAL TABLET (CARVEDILOL) Take one tablet by mouth twice daily for high blood pressure; Route: ORAL LOSARTAN POTASSIUM 100 MG ORAL TABLET (LOSARTAN POTASSIUM) Take one tablet by mouth once daily for high blood pressure; Route: ORAL VANCOMYCIN HCL 125 MG ORAL CAPSULE (VANCOMYCIN HCL) Take one capsule by mouth 4 x a day for four days, then one capsule twice daily for seven days, then one capsule every two days for four weeks; Route: ORAL MEDROXYPROGESTERONE ACETATE 10 MG ORAL TABLET (MEDROXYPROGESTERONE ACETATE) Take one tablet by mouth daily; Route: ORAL MACROBID 100 MG ORAL CAPSULE (NITROFURANTOIN MONOHYD MACRO) Take one tablet by mouth twice daily for 7 days; Route: ORAL ADVAIR DISKUS 250-50 MCG/DOSE INHALATION AEROSOL POWDER CHRISTINE (FLUTICASONE- SALMETEROL) Use one inhalation twice daily, rinse mouth after use; Route: INHALATION DILTIAZEM HCL ER 120 MG ORAL CAPSULE EXTENDED RELEASE 24 YELENA (DILTIAZEM HCL) Take two capsule by mouth once daily for high blood pressure; Route: ORAL HYDROCHLOROTHIAZIDE 12.5 MG ORAL TABLET (HYDROCHLOROTHIAZIDE) Take one tablet by mouth daily; Route: ORAL METHOCARBAMOL 500 MG TABS (METHOCARBAMOL) TAKE 1 AND 1/2 TABLETS (750 MG) BY MOUTH THREE TIMES DAILY NEEDED FOR BACK SPASMS CHOLESTYRAMINE 4 GM PACK (CHOLESTYRAMINE) TAKE ONE PACKET WITH 6 OUNCES OF WATER TWICE DAILY IBUPROFEN 800 MG TABS (IBUPROFEN) TAKE ONE TABLET BY MOUTH THREE TIMES DAILY WITH FOOD VENTOLIN HFA 108 MCG/ACT AER GLAX (ALBUTEROL SULFATE) INHALE TWO PUFFS BY MOUTH EVERY FOUR HOURS NEEDED FOR WHEEZING FLUTICASONE PROPIONATE NASAL SUSPENSION 50 MCG/ACT (FLUTICASONE PROPIONATE) USE ONE SPRAY IN EACH NOSTRIL TWICE DAILY TRIAMCINOLONE ACETONIDE 0.1 % EXTERNAL CREAM (TRIAMCINOLONE ACETONIDE) Apply sparingly to affected areas daily TRUETEST TEST IN VITRO STRIP (GLUCOSE BLOOD) use to check BS once daily MONOLET LANCETS (LANCETS) use to check BS once daily HYDROCORTISONE 2.5 % EXTERNAL CREAM (HYDROCORTISONE) Apply twice daily to affected ear canal as needed; Route: EXTERNAL PMH/PSH - Past Medical History Cardiovascular: positive: Hypertension, Other Respiratory: positive: Asthma, Sleep apnea Neuro: positive: None Endocrine/Autoimmune: positive: Type 2 diabetes, Other GI: positive: GERD, Hiatal hernia, C.difficile, Other : positive: Chronic bladder infection HEENT: positive: Chronic vision loss Psych: positive: None Musculoskeletal: positive: Osteoarthritis, Chronic back pain Derm: positive: Rosacea MRSA Hx?: No - Past Surgical History General: positive: Cholecystectomy, Other Ortho: positive: Arthroscopic surgery, Carpal Tunnel surgery, Other /CAN CLEANER: positive: Dilation and currettage, Tubal ligation, Other HEENT: positive: Cataracts, Other Social & Family Hx - Social History Smoking Status: Never smoker Meds/Allgy - Home Medications Home Medications: Ambulatory Orders Medication Instructions Recorded Confirmed Albuterol Sulfate [Albuterol 1 - 2 puffs IH Q4H PRN 09/16/19 03/14/20 Sulfate Hfa] Cholestyramine [Questran] 4 gm PO DAILY PRN 09/16/19 03/14/20 Fluticasone [Flonase] 1 sprays SARA QPM 09/16/19 03/14/20 Ibuprofen 800 mg PO TID PRN 09/16/19 03/14/20 Losartan Potassium 50 mg PO QPM 09/16/19 03/14/20 Pantoprazole Sodium 40 mg PO DAILY PRN 09/16/19 03/14/20 Carvedilol 12.5 mg PO BID 03/14/20 03/14/20 Hydrocortisone 1 applic TP BID PRN 03/14/20 03/14/20 Medroxyprogesterone Acetate 10 mg PO DAILY 03/14/20 03/14/20 Triamcinolone Acetonide 0.1% 1 applic TP DAILY PRN 03/14/20 03/14/20 [Triamcinolone Acetonide] - Allergies Allergies/Adverse Reactions: Allergies Allergy/AdvReac Type Severity Reaction Status Date / Time empagliflozin Allergy causes UTI Verified 03/14/20 11:54 [From Jardiance]
--- NOTE | 2020-03-22 07:19 | ANESTHESIA ---
Pre-Anesthesia VS, & Labs - Diagnosis endometrial polyp, endometrial thickening - Procedure Myosure hysteroscopy, D&C Vital Signs: Temp Pulse Resp BP Pulse Ox 37.3 C 88 16 136/54 H 97 03/22/20 06:48 03/22/20 06:48 03/22/20 06:48 03/22/20 06:48 03/22/20 06:48 Height 5 ft 2.5 in Weight (kg) 123.3 kg - NPO >8 hours - Is Patient ?: No - Lab Results Lab results reviewed: Yes Home Medications and Allergies Home Medications: Ambulatory Orders Carvedilol 12.5 mg PO BID 03/14/20 Hydrocortisone 1 applic TP BID PRN 03/14/20 Medroxyprogesterone Acetate 10 mg PO DAILY 03/14/20 Triamcinolone Acetonide 0.1% [Triamcinolone Acetonide] 1 applic TP DAILY PRN 03/14/20 Ferrous Gluconate [Iron] 240 mg PO DAILY 03/22/20 Loperamide HCl [Imodium A-D] 2 mg PO DAILY PRN 03/22/20 Albuterol Sulfate [Albuterol Sulfate Hfa] 1 - 2 puffs IH Q4H PRN 09/16/19 Cholestyramine [Questran] 4 gm PO DAILY PRN 09/16/19 Fluticasone [Flonase] 1 sprays SARA QPM 09/16/19 Ibuprofen 800 mg PO TID PRN 09/16/19 Losartan Potassium 50 mg PO QPM 09/16/19 Pantoprazole Sodium 40 mg PO DAILY PRN 09/16/19 Carvedilol 12.5 mg PO BID 03/14/20 Hydrocortisone 1 applic TP BID PRN 03/14/20 Medroxyprogesterone Acetate 10 mg PO DAILY 03/14/20 Triamcinolone Acetonide 0.1% [Triamcinolone Acetonide] 1 applic TP DAILY PRN 03/14/20 Ferrous Gluconate [Iron] 240 mg PO DAILY 03/22/20 Loperamide HCl [Imodium A-D] 2 mg PO DAILY PRN 03/22/20 Allergies/Adverse Reactions: Allergies Allergy/AdvReac Type Severity Reaction Status Date / Time empagliflozin Allergy causes UTI Verified 03/14/20 11:54 [From Jardiance] Anes History & Medical History - Anesthetic History Anesthesia Complications: reports: No previous complications Family history of Anesthesia Complications: Denies Family history of Malignant Hyperthermia: Denies - Medical History Cardiovascular: reports: Hypertension, Other Pulmonary: reports: Asthma, Sleep apnea Gastrointestinal: reports: GERD, Hiatal hernia, C.difficile, Other Urinary: reports: Chronic bladder infection Neuro: reports: None Musculoskeletal: reports: Osteoarthritis, Chronic back pain Endocrine/Autoimmune: reports: Type 2 diabetes, Other Blood Disorders: reports: None Skin: reports: Rosacea Smoking Status: Never smoker - Surgical History General: Cholecystectomy, Other Eyes Ears Nose Throat (EENT): Cataracts, Other Gynecologic: Dilation and currettage, Tubal ligation, Other Orthopedic: Arthroscopic surgery, Carpal Tunnel surgery, Other Exam General: Alert, Oriented x3, Cooperative, No acute distress Dental: WNL Mouth Openin Fingerbreadth Neck Mobility: Normal Mallampati classification: II Respiratory: Lungs clear, Normal breath sounds, No respiratory distress, No accessory muscle use Cardiovascular: Regular rate, Normal S1, Normal S2, No murmurs Plan Anesthesia Type: General Consent for Procedure(s) Verified and Reviewed: Yes Code Status: Attempt Resuscitation ASA classification: 3-Severe systemic disease Is this case an emergency?: No
[2020-03-22] MEDS ORDERED: HYDROmorphone 0.5 MG/0.5 ML SYRINGE IVP PRN (07:21)
[2020-03-22] MEDS ORDERED: ePHEDrine 50 MG/ML VIAL IVP PRN (07:21)
[2020-03-22] MEDS ORDERED: fentaNYL 100 MCG/2 ML VIAL IVP PRN (07:21)
[2020-03-22] MEDS ORDERED: MORPHINE 2 MG/ML CARPUJECT IVP PRN (07:21)
[2020-03-22] MEDS ORDERED: NALOXONE 0.4 MG/ML VIAL IVP PRN (07:21)
[2020-03-22] MEDS ORDERED: ATROPINE ABBOJECT 1 MG/10 ML SYRINGE IVP PRN (07:21)
[2020-03-22] MEDS ORDERED: ONDANSETRON 4 MG/2 ML VIAL IVP PRN (07:21)
[2020-03-22] MEDS ORDERED: METOCLOPRAMIDE 10 MG/2 ML VIAL IVP PRN (07:21)
[2020-03-22] MEDS ORDERED: LIDOCAINE-MPF 2% 5 ML VIAL IM ONE (07:44)
[2020-03-22] MEDS ORDERED: ROCURONIUM 50 MG/5 ML VIAL IVP ONE (07:44)
[2020-03-22] MEDS ORDERED: fentaNYL 100 MCG/2 ML VIAL IVP ONE (07:44)
[2020-03-22] MEDS ORDERED: PROPOFOL 200 MG/20 ML VIAL IVP ONE (07:44)
[2020-03-22] MEDS ORDERED: GLYCOPYRROLATE 1 MG/5 ML VIAL IVP ONE (07:44)
[2020-03-22] MEDS ORDERED: ACETAMINOPHEN 1,000 MG/100 ML 100 ML IV ONE (07:44)
[2020-03-22] MEDS ORDERED: DEXAMETHASONE 4 MG/ML VIAL IVP ONE (07:44)
[2020-03-22] MEDS ORDERED: NEOSTIGMINE 1 MG/1 ML 10 ML MDV IVP ONE (07:44)
[2020-03-22] MEDS ORDERED: KETOROLAC 15 MG/ML VIAL IVP ONE (07:44)
[2020-03-22] MEDS ORDERED: MIDAZOLAM 2 MG/2 ML VIAL IVP ONE (07:44)
[2020-03-22] MEDS ORDERED: ONDANSETRON 4 MG/2 ML VIAL IVP ONE (07:44)
[2020-03-22] MEDS ORDERED: LACTATED RINGERS 1,000 ML IV SCH (08:00)
[2020-03-22 08:16] LABS: BASOPHILS % (AUTO) 0.4 %; EOSINOPHILS # (AUTO) 0.2 10^3/uL (0.0-0.7); EOSINOPHILS % (AUTO) 2.2 %; HGB - HEMOGLOBIN 13.1 g/dL (12.0-16.0); LYMPHOCYTES # (AUTO) 2.2 10^3/uL (1.5-3.5); LYMPHOCYTES % (AUTO) 22.6 %; MEAN CORPUSCULAR HEMOGLOBIN 29.5 pg (27.0-31.0); MEAN CORPUSCULAR HGB CONC 32.8 g/dL (32.0-36.0); MEAN CORPUSCULAR VOLUME 89.9 fL (81.0-99.0); MEAN PLATELET VOLUME 9.8 fL (7.9-10.8); MONOCYTES # (AUTO) 0.5 10^3/uL (0.0-1.0); MONOCYTES % (AUTO) 5.2 %; NEUTROPHILS # (AUTO) 6.7 10^3/uL (1.5-6.6); NEUTROPHILS % (AUTO) 68.2 %; PLT - PLATELET COUNT 250 10^3/uL (130-450); RED BLOOD COUNT 4.44 10^6/uL (4.20-5.40); RED CELL DISTRIBUTION WIDTH 14.7 % (12.0-15.0); WHITE BLOOD COUNT 9.8 x10^3/uL (4.8-10.8)
[2020-03-22] MEDS ORDERED: LIDOCAINE 1%-EPI 1:100000 20 ML MDV SUBQ ONE ×2 (08:18)
[2020-03-22] MEDS ORDERED: LIDOCAINE 1%-EPI 1:100000 20 ML MDV ONE (08:20)
[2020-03-22] MEDS ORDERED: oxyCODONE 5 MG TABLET PO PRN (08:49)
--- NOTE | 2020-03-22 08:58 | OPERATIVE REPORT ---
Operative Report - General Planned Procedure: Hysteroscopy D&C with possible polypectomy Pre-Op Diagnosis: Thickened endometrium, postmenopausal bleeding Procedure Performed: Hysteroscopy D&C and polypectomy Post Op Diagnosis: Same - Procedure Note Primary Surgeon: Missy Byrd MD Anesthesia Provider: Sánchez Chau CRNA Anesthesia Technique: General ET tube Pathology: Uterine contents IV Fluids (mL): 600 Estimated Blood Loss (mL): 5 Urine Output (mL): 110 Indications: Patient is a 65 yo female that presents for hysteroscopy D&C. Patient was last seen in clinic on 02/17/2020 with postmenopausal bleeding. She had undergone a hysteroscopy D&C in September of this year after presenting with postmenopausal bleeding. At time of surgery, she had a large polyp protruding through the cervix. It was removed and was more than 4 cm long and incorporated all of the endoemerial thickness. Endometrium was otherwise atrophic and unremarkable. At her last visit she reported that she had started having daily consistent spotting but no gushes or heavy flow as in the past. She is wearing a pad and supplementing with a papertowel. On 01/26/20, flow became heavier. She feels it is almost as though she has been having a cycle as flow waxes and wanes. She underwent a pelvic us on 03/07/2020 that showed no significant changes from the 09/07/19 exam, despite removal of substantial polyp in September 2019. EMS was 11 mm and polypoid structure was 14 mm x4x6 mm with cystic changes in endometrium. Findings: Thickened endometrium with small polypoid like structures. Bilateral tubal ostia noted. Complications: None - Other Other Information/Narrative: Risks benefits and alternatives to the procedure were reviewed. Consent was again confirmed. Patient was taken to the operating room where she underwent general anesthesia. She was positioned in dorsolithotomy position with legs resting in yellowfin stirrups. She was prepped and draped in the usual sterile fashion. Preoperative antibiotics were not indicated. Preoperative checklist was performed. Exam under anesthesia was performed. Speculum was placed in the vagina and the cervix was visualized. Single-tooth tenaculum was placed at the anterior cervical lip. Paracervical block was administered using a total of 20 cc of 1% lidocaine with epinephrine was injected at the 4:00 and 8:00 positions lateral to the portio of the cervix. The cervical os was serially dilated with Hegar dilators to accommodate the caliber of the diagnostic hysteroscope. Uterus sounded to 9 cm. The hysteroscope was inserted and findings were noted as above. The hysteroscopic morcellator was inserted through the operative port. The intrauterine polyps were morcellated under direct visualization. Uterine cavity was smooth at close of the procedure. Hysteroscope was removed. Sharp curettage D&C was performed with sharp curettage. All instruments were removed from the uterus. Tenaculum was removed. Tenaculum sites were noted to be hemostatic. All instruments were removed from the vagina. Procedure was well-tolerated without complication. Fluid deficit: 60 cc NS
[2020-03-22 10:19] VITALS: BP 135/83
--- NOTE | 2020-03-22 11:02 | ANESTHESIA POST OP EVALUATION ---
Anesthesia Post Eval - Post Anesthesia Eval Vitals: Last Vital Signs Temp 37.0 C 03/22/20 10:00 Pulse 74 03/22/20 10:00 Resp 16 03/22/20 10:00 BP 135/83 H 03/22/20 10:00 Pulse Ox 98 03/22/20 10:00 CV Function Including HR & BP: positive: Stable Pain Control: positive: Satisfactory Nausea & Vomiting: positive: Negative Mental Status: positive: Baseline Respiratory Status: Airway Patent Hydration Status: Satisfactory Anesthesia Complications: positive: None
== END 2020-03-22 06:32 | disposition home or self-care (01) ==
LOC: SDS 06:31
PROVIDERS: ATTEND Obstetrics & Gynecology
PROC: 0UDB7ZX Extraction of Endometrium, Via Natural or Artificial Opening, Diagnostic (ICD-10-PCS; principal; 2020-03-22 07:30)
DX: N85.00 Endometrial hyperplasia, unspecified (principal); E66.9 Obesity, unspecified; Z68.42 Body mass index [BMI] 45.0-49.9, adult; I10 Essential (primary) hypertension; E78.5 Hyperlipidemia, unspecified; E11.9 Type 2 diabetes mellitus without complications; J45.909 Unspecified asthma, uncomplicated; G47.30 Sleep apnea, unspecified; H54.7 Unspecified visual loss; G89.29 Other chronic pain; M54.9 Dorsalgia, unspecified; M19.90 Unspecified osteoarthritis, unspecified site; Z79.1 Long term (current) use of non-steroidal anti-inflammatories (NSAID); Z79.899 Other long term (current) drug therapy
CPT/HCPCS: 58558; 85025; A9270; J0131; J7120

== ENCOUNTER 2020-04-12 07:00 | Outpatient (CLI) | payer BC | END 2020-04-12 23:59 | disposition home or self-care (01) | LOC: LAB.R 07:00 | PROVIDERS: ATTEND Family Medicine | DX: A04.72 Enterocolitis due to Clostridium difficile, not specified as recurrent (principal) | CPT/HCPCS: 81599; 83630; 87045; 87046; 87329; 87427; 87493 ==

== ENCOUNTER 2020-06-29 08:00 | Outpatient (CLI) | payer BC ==
[2020-06-29 12:08] LABS: BASOPHILS % (AUTO) 0.5 %; EOSINOPHILS # (AUTO) 0.4 10^3/uL (0.0-0.7); EOSINOPHILS % (AUTO) 5.6 %; HGB - HEMOGLOBIN 12.3 g/dL (12.0-16.0); LYMPHOCYTES # (AUTO) 1.9 10^3/uL (1.5-3.5); LYMPHOCYTES % (AUTO) 29.2 %; MEAN CORPUSCULAR HEMOGLOBIN 29.6 pg (27.0-31.0); MEAN CORPUSCULAR HGB CONC 31.6 g/dL (32.0-36.0); MEAN CORPUSCULAR VOLUME 93.7 fL (81.0-99.0); MEAN PLATELET VOLUME 9.4 fL (7.9-10.8); MONOCYTES # (AUTO) 0.4 10^3/uL (0.0-1.0); MONOCYTES % (AUTO) 5.4 %; NEUTROPHILS # (AUTO) 3.8 10^3/uL (1.5-6.6); PLT - PLATELET COUNT 237 10^3/uL (130-450); RED BLOOD COUNT 4.15 10^6/uL (4.20-5.40); RED CELL DISTRIBUTION WIDTH 13.4 % (12.0-15.0); WHITE BLOOD COUNT 6.5 x10^3/uL (4.8-10.8)
[2020-06-29 12:53] LABS: ALBUMIN 4.1 g/dL (3.2-5.5); ALBUMIN/GLOBULIN RATIO 1.4 (1.0-2.2); ALKALINE PHOSPHATASE 57 IU/L (42-121); ALT ALANINE AMINOTRANSFERASE 27 IU/L (10-60); AST ASPARTATE AMINOTRANSFERASE 21 IU/L (10-42); BILIRUBIN,TOTAL 0.6 mg/dL (0.2-1.0); BUN - BLOOD UREA NITROGEN 25 mg/dL (6-20); CARBON DIOXIDE - CO2 26 mmol/L (21-32); CHLORIDE 105 mmol/L (101-111); CHOL/HDL RATIO 3.9 (<4.4); CHOLESTEROL 184 mg/dL; CREATININE 0.8 mg/dL (0.4-1.0); GLUCOSE 138 mg/dL (70-100); HDL CHOLESTEROL 47 mg/dL; LDL CHOLESTEROL,CALCULATED 98 mg/dL; LDL/HDL RATIO 2.1 (<4.4); SODIUM 139 mmol/L (135-145); TOTAL PROTEIN 7.1 g/dL (6.7-8.2); VLDL CHOLESTEROL 39 mg/dL
[2020-06-29 16:18] LABS: HEMOGLOBIN A1c% 6.5 % (4.27-6.07)
== END 2020-06-29 08:01 | disposition home or self-care (01) ==
LOC: LAB.WCP 08:00
PROVIDERS: ATTEND Nurse Practitioner
DX: Z00.00 Encounter for general adult medical examination without abnormal findings (principal); K57.90 Diverticulosis of intestine, part unspecified, without perforation or abscess without bleeding; I10 Essential (primary) hypertension; E11.9 Type 2 diabetes mellitus without complications; E78.5 Hyperlipidemia, unspecified
CPT/HCPCS: 36415; 80053; 80061; 83036; 83721; 85025

== ENCOUNTER 2020-12-27 08:00 | Outpatient (CLI) | payer BC ==
[2020-12-27 12:20] LABS: CALCIUM 9.2 mg/dL (8.5-10.3); CREATININE 0.9 mg/dL (0.4-1.0); POTASSIUM 4.1 mmol/L (3.5-5.0)
[2020-12-27 12:33] LABS: ESTIMATED AVERAGE GLUCOSE 146 mg/dL (70-100); HEMOGLOBIN A1c% 6.7 % (4.27-6.07)
== END 2020-12-27 23:59 | disposition home or self-care (01) ==
LOC: LAB.WCP 08:00
PROVIDERS: ATTEND Family Medicine
DX: E04.1 Nontoxic single thyroid nodule (principal); E11.9 Type 2 diabetes mellitus without complications; I10 Essential (primary) hypertension
CPT/HCPCS: 36415; 80048; 83036

== ENCOUNTER 2022-10-17 10:05 | Outpatient (CLI) | payer BC, MEDICARE | END 2022-10-17 23:59 | disposition home or self-care (01) | LOC: LAB.N 10:05 | PROVIDERS: ATTEND Family Medicine | DX: K52.9 Noninfective gastroenteritis and colitis, unspecified (principal) | CPT/HCPCS: 87493 ==

== ENCOUNTER 2023-06-26 13:49 | Outpatient (CLI) | payer BC ==
--- NOTE | 2023-06-27 09:56 | DEXA Report ---
PROCEDURE: Dexa Spine and/or Hip INDICATIONS: POSTMENOPAUSAL TECHNIQUE: Dual energy x-ray absorptiometry (DXA) was performed on a [employer]. Regions measur ed are the AP Spine, femoral neck, and if needed forearm. COMPARISON: None. FINDINGS: Lumbar Spine: Bone Mineral Density 1.452 g/cm/cm,T score 2.3. Left Femoral Neck: Bone Mineral Density 1.044 g/cm/cm, T score 0.0. Left Hip: Bone Mineral Density 1.160 g/cm/cm,T score 1.2. (T score greater or equal to -1.0: NORMAL) (T score from -1.1 to -2.4: OSTEOPENIA) (T score less than or equal to -2.5 to: OSTEOPOROSIS) Impression: By WHO criteria, this patient has normal bone density. Patients with diagnosis of osteoporosis or osteopenia should have regular bone mineral density assess ment. For those eligible for Medicare, routine testing is allowed once every 2 years. Testing frequ ency can be increased for patients who have rapidly progressing disease or for those who are receivin g medical therapy to restore bone mass. Reviewed by: Lynne Cline MD on 06/27/2023 9:55 AM PST Approved by: Lynne Cline MD on 06/27/2023 9:55 AM PST Station ID: [id number]
== END 2023-06-26 13:50 | disposition home or self-care (01) ==
LOC: DI 13:49
PROVIDERS: ATTEND Family Medicine
DX: Z78.0 Asymptomatic menopausal state (principal)

== ENCOUNTER 2024-02-04 19:16 | Outpatient (CLI) | payer BC ==
--- NOTE | 2024-02-05 19:03 | Ultrasound Report ---
PROCEDURE: Duplex Ext Veins Left INDICATIONS: LOCALIZED SWELLING, MASS AND LUMP LLL TECHNIQUE: Real-time imaging, as well as color and pulse Doppler interrogation, were performed of the lower extr emity deep veins from the inguinal ligament to the popliteal fossa. Attempted visualization of the ca lf veins was performed. COMPARISON: None. FINDINGS: The deep veins are normally compressible, and free of intraluminal thrombus. Color and pu lse Doppler demonstrate normal phasic intraluminal flow. There is normal augmentation response to di stal compression maneuver. Palpable lumps, left posterior calf. One month as a cystic area and the other lymph nodes has an echo genic area. There are 1.1 cm in maximum diameter respectively. They have a benign appearance. They ar e not thrombosed varicosities. Question sebaceous cyst and possible lipoma. This is not definite. IMPRESSION: No deep venous thrombosis of the left lower extremity. Reviewed by: Biju Pearson MD on 02/05/2024 7:02 PM PDT Approved by: Biju Pearson MD on 02/05/2024 7:02 PM PDT Station ID: [id number]
== END 2024-02-04 19:17 | disposition home or self-care (01) ==
LOC: DI 19:16
PROVIDERS: ATTEND Physician Assistant Medical
DX: R22.42 Localized swelling, mass and lump, left lower limb (principal)